=== PATIENT | male | born 1970 | race American Indian/Alaskan Native ===

== ENCOUNTER → 2016-10-04 | Outpatient (CLI) | payer MEDICAID ==
[~2016-10-04] MED LIST: ALLO300T PO; LISI-170 PO; LOSA50TA6 PO; METF10002 PO
== END | disposition home or self-care (01) ==
LOC: CVU 07:53
PROVIDERS: ATTEND Surgery
DX: I83.812 Varicose veins of left lower extremity with pain (principal)
CPT/HCPCS: 93971

== ENCOUNTER 2016-12-23 12:42 | Day surgery (SDC) | payer MEDICAID ==
[2016-12-20 10:30] LABS: HEMATOCRIT 51.6 % (39.2-51.8); HEMOGLOBIN 17.7 g/dL (13.7-18.0); WHITE BLOOD COUNT 5.8 x10^3/uL (3.4-10)
[2016-12-20 10:41] LABS: BLOOD UREA NITROGEN 12 mg/dL (7-18)
[2016-12-20 10:44] LABS: ASPARTATE AMINO TRANSFERASE 27 U/L (15-37)
[~2016-12-23] VITALS: Ht 190.5 cm; Wt 138.2 kg
[2016-12-23] MEDS ORDERED: LACTATED RINGERS 1,000 ML IV SCH (13:03)
[2016-12-23] MEDS ORDERED: LIDOCAINE 1%, 2ML ONE (13:04)
[2016-12-23 13:05] VITALS: BP 129/88
[2016-12-23] MEDS ORDERED: LIDOCAINE 1%, 2ML SQ PRN (13:30)
[2016-12-23] MEDS ORDERED: FENTANYL PF 100 MCG/2ML ONE ×3 (14:42→16:43)
[2016-12-23] MEDS ORDERED: MIDAZOLAM 1 MG/ML, 2ML ONE (14:42)
[2016-12-23] MEDS ORDERED: LIDOCAINE/PF 1%, 30ML ONE (14:47)
[2016-12-23] MEDS ORDERED: HEPARIN 1,000 UNITS/ML, 10ML ONE (14:47)
[2016-12-23] MEDS ORDERED: EPINEPHRINE 1 MG/ML, 1ML ONE (14:48)
[2016-12-23] MEDS ORDERED: ROCURONIUM 10 MG/ML ONE (14:59)
[2016-12-23] MEDS ORDERED: CEFAZOLIN 1,000 MG ONE (14:59)
[2016-12-23] MEDS ORDERED: SUCCINYLCHOLINE 20 MG/ML, 10ML ONE (14:59)
[2016-12-23] MEDS ORDERED: PROPOFOL 10 MG/ML, 20ML ONE (14:59)
[2016-12-23] MEDS ORDERED: ONDANSETRON 2MG/ML, 2ML IVPush PRN (15:00)
[2016-12-23] MEDS ORDERED: hydrALAzine 20 MG/ML, 1ML IV PRN (15:00)
[2016-12-23] MEDS ORDERED: LABETALOL 5MG/ML, 20ML IV PRN (15:00)
[2016-12-23] MEDS ORDERED: MEPERIDINE/PF 25MG/0.5ML IVPush PRN (15:00)
[2016-12-23] MEDS ORDERED: PROMETHAZINE 25 MG/ML, 1ML IV PRN (15:00)
[2016-12-23] MEDS ORDERED: HYDROmorphone 1 MG/ML, 1ML IV PRN (15:00)
[2016-12-23] MEDS ORDERED: ALBUTEROL SULFATE 2.5 MG/3 ML NPPB PRN (15:00)
[2016-12-23] MEDS ORDERED: FENTANYL PF 100 MCG/2ML IV PRN (15:00)
[2016-12-23] MEDS ORDERED: OXYcodone 5 MG/5 ML ORAL.SOL UDC PO PRN (15:00)
[2016-12-23] MEDS ORDERED: ACETAMINOPHEN 325 MG TABLET PO PRN (15:00)
[2016-12-23] MEDS ORDERED: MIDAZOLAM 1 MG/ML, 2ML IV PRN (15:00)
[2016-12-23] MEDS ORDERED: OXYcodone 5 MG/5 ML ORAL.SOL UDC ONE (16:44)
[2016-12-23] MEDS ORDERED: KETOROLAC 30 MG/1 ML ONE (17:26)
[2016-12-23] MEDS ORDERED: KETOROLAC 30 MG/1 ML IVPush ONE (18:00)
== END 2016-12-23 18:40 ==
LOC: OUT 12:42
PROVIDERS: ATTEND Surgery
DX: I87.8 Other specified disorders of veins (principal); I83.812 Varicose veins of left lower extremity with pain; I10 Essential (primary) hypertension; E11.9 Type 2 diabetes mellitus without complications; M10.9 Gout, unspecified; E66.9 Obesity, unspecified; Z68.38 Body mass index [BMI] 38.0-38.9, adult; Z90.3 Acquired absence of stomach [part of]
CPT/HCPCS: 36415; 36475; 37765; 80053; 82962; 85025; 93005; C1888; C1894; J0171; J0330; J0690; J1644; J1885; J2250; J2704; J3010; J3490; J7120

== ENCOUNTER → 2016-12-26 | Outpatient (CLI) | payer MEDICAID | END | disposition home or self-care (01) | LOC: CVU 16:05 | PROVIDERS: ATTEND Surgery | DX: I83.028 Varicose veins of left lower extremity with ulcer other part of lower leg (principal); I83.812 Varicose veins of left lower extremity with pain | CPT/HCPCS: 93971 ==